=== PATIENT | male | born 1960 | race Caucasian/White ===

== ENCOUNTER → 2019-09-17 15:39 | Outpatient (ROUT) | payer OTHER, SELFPAY ==
[2019-09-17 15:51] LABS: Add Manual Diff / Slide Review NO; Basophils Absolute Auto 100 /uL (0-100); Basophils Percent Auto 0.7 % (0-2); Eosinophils Absolute Auto 200 /uL (0-450); Eosinophils Percent Auto 1.7 % (2-4); Hematocrit 55.9 % (41-53); Hemoglobin 19.2 g/dL (13.5-17.5); Lymphocytes Absolute Auto 2000 /uL (1100-4500); Lymphocytes Percent Auto 21.1 % (25-40); Mean Corpuscular HGB Conc 34.3 % (30-36); Mean Corpuscular Hemoglobin 31.5 PG (26-34); Mean Corpuscular Volume 91.8 fL (80-100); Monocytes Absolute Auto 700 /uL (0-900); Monocytes Percent Auto 7.8 % (3-14); Neutrophils Absolute Auto 6300 /uL (1500-7000); Neutrophils Percent Auto 68.7 % (50-75); Platelet Count 320 X10^3/uL (150-400); Red Blood Cell Count 6.09 X10^6/uL (4.5-5.9); Red Cell Distribution Width 14.6 % (11.6-14.8); White Blood Cell Count 9.2 X10^3/uL (4.5-11.0)
[2019-09-17 15:53] LABS: Alanine Aminotransferase 60 IU/L (21-72); Albumin 4.6 g/dL (3.5-5.0); Albumin Globulin Ratio 1.6 (1.0-2.8); Alkaline Phosphatase 85 U/L (38-126); Aspartate Aminotransferase 40 IU/L (17-59); BUN Creatinine Ratio 23.8 (6-22); Bilirubin Total 0.6 mg/dL (0.2-1.3); Blood Urea Nitrogen 19 mg/dL (9-20); Calcium 10.9 mg/dL (8.4-10.2); Carbon Dioxide 26 mmol/L (22-32); Chloride 103 mmol/L (98-107); Cholesterol 313 mg/dL (140-199); Estimated Glomerular Filt Rate > 60.0 mL/min (>60); Globulin 2.9 g/dL (1.7-4.1); Glucose 121 mg/dL (80-110); HDL Cholesterol 49 mg/dL (40-60); HEMOLYSIS < 15 (0-50); Potassium 4.7 mmol/L (3.4-5.1); Sodium 140 mmol/L (137-145); Total Protein 7.5 g/dL (6.3-8.2)
[2019-09-17 16:01] LABS: Triglycerides 636 mg/dL (35-150)
[2019-09-17 16:24] LABS: Prostate Specific Antigen 0.733 ng/mL (0.10-4.00)
[2019-09-17 16:26] LABS: TSH w/ Reflex to FT4 3.51 uIU/mL (0.47-4.68)
== END ==
PROVIDERS: PCP Family Medicine; Visit Provider Internal Medicine
DX: Z00.00 Encounter for general adult medical examination without abnormal findings (principal); R53.83 Other fatigue; E78.2 Mixed hyperlipidemia; E29.1 Testicular hypofunction; E83.52 Hypercalcemia
CPT/HCPCS: 80053; 80061; 84153; 84403; 84443; 85025

== ENCOUNTER 2019-12-31 10:02 | Day surgery (SDC) | payer OTHER, SELFPAY ==
[2019-12-31] MEDS: SODIUM CHLORIDE 0.9% 1,000 ML 84 ML IV (10:23)
[2019-12-31 10:32] VITALS: BMI 34.4
--- NOTE | 2019-12-31 11:57 | PM.HP.1 ---
History of Present Illness History of Present Illness Chief complaint: [id number] COLONOSCOPY Patient History Family & Social History Social History: household members spouse Tobacco & Substance use: Tobacco type cigarettes Smoking Status Current every day smoker Smoking packs per day 1 alcohol intake frequency holiday/special occasion Substance Use Type marijuana Meds Home Medications and Allergies Allergies Allergy/AdvReac Type Severity Reaction Status Date / Time No Known Drug Allergies Allergy Verified 12/31/19 10:38 Review of Systems Review of Systems ROS: Yes All systems reviewed with the patient and are negative except as otherwise documented Exam Narrative Exam Narrative: Awake alert oriented x3, no acute distress, lungs clear to auscultation bilaterally, heart regular rate and rhythm, no lower extremity edema Assessment & Plan Assessment & Plan narrative: History of colon polyps for colonoscopy today
[2019-12-31] MEDS: MIDAZOLAM 5 MG/5 ML VIAL IV ×2 (12:20→12:30)
[2019-12-31] MEDS: fentaNYL 250 MCG/5 ML INJ IV (12:20)
--- NOTE | 2019-12-31 12:32 | PM.OP.ENDO ---
Operative Date/Time/Diagnoses Date of procedure: 12/31/19 Procedure & Clinicians Study performed: Aborted colonoscopy Moderate conscious sedation was administered by the endoscopy nurse and supervised by the endoscopist. The following parameters were monitored: Oxygen saturation, heart rate, blood pressure, and response to care. Sedation total: 8 mg midazolam, 200 mcg fentanyl Indications: Colon cancer screening, personal history of colon polyps, last colonoscopy 2006 Procedure Notes Procedure in detail: Prior to the procedure, history and physical was performed, and patient medications and allergies were reviewed. Preprocedure nursing history and assessment was reviewed. Patient identification and proposed procedure were verified by the physician and nurse in the procedure room. The physical status of the patient was reassessed after the procedure. After informed consent was obtained including risks, benefits, and alternatives, the scope was passed under direct vision. Throughout the procedure, the patient's blood pressure, pulse, and oxygen saturations were monitored continuously. The colonoscope was introduced through the anus and advanced to the descending colon. The patient tolerated the procedure poorly and the scope could not be advanced further due to excessive patient discomfort and agitation. Bowel prep was deemed adequate to detect polyps greater than 5 mm. Perianal and digital rectal examinations were unremarkable. Retroflexion in the rectum revealed grade 1 internal hemorrhoids. Sigmoid colon diverticulosis was noted. Colonoscope advanced to the descending colon, procedure aborted. Impression: Aborted colonoscopy due to excessive patient discomfort and agitation No specimen obtained Sedation minutes: 12 Specimen(s): none sent Complications: none Post-procedure Plan for aftercare: Reschedule colonoscopy with monitored anesthesia care Resume home medications Resume previous diet Discharge home with escort
[2019-12-31 12:35] VITALS: BP 134/92; PULSE 77; RESP 16; TEMP 36.2; O2SAT 94
[2019-12-31 12:40] VITALS: BP 171/128; PULSE 81; RESP 86; O2SAT 17
[2019-12-31 12:45] VITALS: BP 139/92; PULSE 70; RESP 18; O2SAT 97
[2019-12-31 12:55] VITALS: BP 129/82; PULSE 83; RESP 16; O2SAT 97
[2019-12-31 13:11] VITALS: BP 133/92; PULSE 73; RESP 21; O2SAT 91
[2019-12-31 13:25] VITALS: BP 122/89; PULSE 82; RESP 20; TEMP 37; O2SAT 96
== END 2019-12-31 13:34 | disposition home or self-care (01) ==
PROVIDERS: PCP Internal Medicine; Referring Provider Internal Medicine; Visit Provider Internal Medicine
PROC: 0DJD8ZZ Inspection of Lower Intestinal Tract, Via Natural or Artificial Opening Endoscopic (ICD-10-PCS; CPT 45378; principal; 2019-12-31 11:30)
DX: Z12.11 Encounter for screening for malignant neoplasm of colon (principal); Z86.010 Personal history of colon polyps; K64.0 First degree hemorrhoids; K57.30 Diverticulosis of large intestine without perforation or abscess without bleeding; Z53.09 Procedure and treatment not carried out because of other contraindication
CPT/HCPCS: 45378; J2250; J3010

== ENCOUNTER → 2020-06-07 08:35 | Outpatient (CLI) | payer OTHER, SELFPAY ==
[2020-06-07 09:23] LABS: Add Manual Diff / Slide Review NO; Basophils Absolute Auto 100 /uL (0-100); Basophils Percent Auto 0.9 % (0-2); Eosinophils Absolute Auto 200 /uL (0-450); Eosinophils Percent Auto 2.8 % (2-4); Hematocrit 41.3 % (41-53); Hemoglobin 14.5 g/dL (13.5-17.5); Lymphocytes Absolute Auto 2500 /uL (1100-4500); Lymphocytes Percent Auto 35.7 % (25-40); Mean Corpuscular HGB Conc 35.2 % (30-36); Mean Corpuscular Hemoglobin 32.9 PG (26-34); Mean Corpuscular Volume 93.5 fL (80-100); Monocytes Absolute Auto 800 /uL (0-900); Monocytes Percent Auto 11.9 % (3-14); Neutrophils Absolute Auto 3400 /uL (1500-7000); Neutrophils Percent Auto 48.7 % (50-75); Platelet Count 318 X10^3/uL (150-400); Red Blood Cell Count 4.41 X10^6/uL (4.5-5.9); Red Cell Distribution Width 12.8 % (11.6-14.8)
[2020-06-07 10:07] LABS: Calcium 9.4 mg/dL (8.4-10.2)
[2020-06-08 07:40] LABS: Parathyroid Hormone Int 25 pg/mL (15-65)
== END ==
PROVIDERS: PCP Internal Medicine; Referring Provider Internal Medicine; Visit Provider Internal Medicine
DX: D75.1 Secondary polycythemia (principal); E83.52 Hypercalcemia
CPT/HCPCS: 36415; 82310; 83970; 85025

== ENCOUNTER → 2020-07-19 12:39 | Outpatient (CLI) | payer OTHER, SELFPAY ==
--- NOTE | 2020-07-19 | DI.MRI.S_ITS ---
PROCEDURE: MR HAND LT WO/W CON INDICATIONS: Osteomyelitis, unspecified TECHNIQUE: Noncontrast coronal T1 spin echo and fat suppressed T2, sagittal T1 spin echo and STIR, axial PD spin, T1 spin echo with fat saturation, and T2 fast spin echo with fat saturation. After the administration of contrast, axial/sagittal/coronal T1 spin echo with fat saturation through the fingers. COMPARISON: None. FINDINGS: Image quality: Excellent. A skin marker is seen at the dorsal aspect of the 3rd finger overlying the distal interphalangeal joint. Bones: There is osseous edema within the 3rd distal and middle phalanges adjacent to the distal interphalangeal joint, which is suspicious for osteomyelitis in the setting of presumed infection. Bone marrow signal is otherwise intact throughout the remainder of the hand. Mild degenerative changes are seen at the 1st metacarpophalangeal joint. Nonspecific osteophyte formation is seen at the radial aspect of the 2nd and 3rd metacarpal heads. Soft tissues: Soft tissue edema is seen in the distal portion of the 3rd finger that is more prominent dorsally. No discrete fluid collection is seen. No soft tissue masses are visualized. The scanned muscles demonstrate normal overall bulk and internal signal. IMPRESSION: Subcutaneous edema is seen in the distal aspect of the 3rd finger overlying the distal interphalangeal joint. There is edema and enhancement of the adjacent portions of the middle and distal phalanges that is suspicious for osteomyelitis in the setting of presumed infection. No focal fluid collection or abscess is seen. Dictated by: Joey Kc M.D. on 07/19/2020 at 14:37 Approved by: Joey Kc M.D. on 07/19/2020 at 14:48
== END ==
PROVIDERS: PCP Internal Medicine; Referring Provider Internal Medicine; Visit Provider Internal Medicine
DX: M86.9 Osteomyelitis, unspecified (principal)
CPT/HCPCS: 73220

== ENCOUNTER → 2020-09-07 10:29 | Outpatient (CLI) | payer OTHER, SELFPAY ==
[2020-09-07 11:12] LABS: Alanine Aminotransferase 27 IU/L (<50); Albumin 4.4 g/dL (3.5-5.0); Albumin Globulin Ratio 1.5 (1.0-2.8); Alkaline Phosphatase 85 U/L (38-126); Aspartate Aminotransferase 32 IU/L (17-59); BUN Creatinine Ratio 27.8 (6-22); Bilirubin Total 0.4 mg/dL (0.2-1.3); Blood Urea Nitrogen 25 mg/dL (9-20); Calcium 9.2 mg/dL (8.4-10.2); Carbon Dioxide 33 mmol/L (22-32); Chloride 103 mmol/L (98-107); Creatine Kinase 252 U/L (55-170); Estimated Glomerular Filt Rate > 60.0 mL/min (>60); Globulin 2.9 g/dL (1.7-4.1); Glucose 122 mg/dL (80-110); HEMOLYSIS 16 (0-50); Potassium 4.4 mmol/L (3.4-5.1); Sodium 139 mmol/L (137-145); Total Protein 7.3 g/dL (6.3-8.2)
== END ==
PROVIDERS: PCP Internal Medicine; Referring Provider Internal Medicine Infectious Disease; Visit Provider Internal Medicine Infectious Disease
DX: M86.9 Osteomyelitis, unspecified (principal); R74.8 Abnormal levels of other serum enzymes
CPT/HCPCS: 36415; 80053; 82550

== ENCOUNTER → 2021-03-14 09:43 | Outpatient (CLI) | payer OTHER, SELFPAY ==
[2021-03-14 10:36] LABS: Add Manual Diff / Slide Review NO; Basophils Absolute Auto 0 /uL (0-100); Basophils Percent Auto 0.6 % (0-2); Eosinophils Absolute Auto 200 /uL (0-450); Eosinophils Percent Auto 2.5 % (2-4); Hematocrit 45.4 % (41-53); Hemoglobin 15.9 g/dL (13.5-17.5); Lymphocytes Absolute Auto 1800 /uL (1100-4500); Lymphocytes Percent Auto 27.1 % (25-40); Mean Corpuscular Hemoglobin 32.5 PG (26-34); Mean Corpuscular Volume 92.9 fL (80-100); Monocytes Absolute Auto 700 /uL (0-900); Monocytes Percent Auto 9.7 % (3-14); Neutrophils Absolute Auto 4100 /uL (1500-7000); Neutrophils Percent Auto 60.1 % (50-75); Platelet Count 233 X10^3/uL (150-400); Red Blood Cell Count 4.89 X10^6/uL (4.5-5.9); Red Cell Distribution Width 12.9 % (11.6-14.8); White Blood Cell Count 6.8 X10^3/uL (4.5-11.0)
[2021-03-14 11:09] LABS: Alanine Aminotransferase 39 IU/L (<50); Albumin 4.3 g/dL (3.5-5.0); Albumin Globulin Ratio 1.8 (1.0-2.8); Alkaline Phosphatase 86 U/L (38-126); Aspartate Aminotransferase 35 IU/L (17-59); BUN Creatinine Ratio 26.3 (6-22); Bilirubin Total 0.5 mg/dL (0.2-1.3); Blood Urea Nitrogen 21 mg/dL (9-20); Calcium 9.4 mg/dL (8.4-10.2); Carbon Dioxide 30 mmol/L (22-32); Chloride 100 mmol/L (98-107); Cholesterol 227 mg/dL (140-199); Estimated Glomerular Filt Rate > 60.0 mL/min (>60); Globulin 2.4 g/dL (1.7-4.1); Glucose 125 mg/dL (80-110); HDL Cholesterol 42 mg/dL (40-60); HEMOLYSIS < 15 (0-50); Potassium 4.6 mmol/L (3.4-5.1); Sodium 137 mmol/L (137-145); Total Protein 6.7 g/dL (6.3-8.2)
[2021-03-14 11:18] LABS: Triglycerides 698 mg/dL (35-150)
[2021-03-14 11:32] LABS: Prostate Specific Antigen 0.456 ng/mL (0.10-4.00)
[2021-03-14 11:34] LABS: Testosterone 45.1 ng/dL (71.8-623)
== END ==
PROVIDERS: PCP Internal Medicine; Referring Provider Internal Medicine; Visit Provider Internal Medicine
DX: E78.2 Mixed hyperlipidemia (principal); E29.1 Testicular hypofunction
CPT/HCPCS: 36415; 80053; 80061; 84153; 84403; 85025

== ENCOUNTER → 2021-06-20 13:16 | Outpatient (CLI) | payer OTHER, SELFPAY ==
[2021-06-20 15:37] LABS: COVID19 -Nasal RAPID Negative (Negative)
== END ==
PROVIDERS: PCP Internal Medicine; Visit Provider Physician Assistant
DX: Z01.812 Encounter for preprocedural laboratory examination (principal); Z20.822 Contact with and (suspected) exposure to COVID-19
CPT/HCPCS: 87635

== ENCOUNTER 2021-06-22 13:24 | Day surgery (SDC) | payer OTHER, SELFPAY ==
[2021-06-22] MEDS: SODIUM CHLORIDE 0.9% 1,000 ML 84 ML IV (14:33)
[2021-06-22 14:34] VITALS: BP 147/87; PULSE 73; RESP 16; TEMP 35.9; O2SAT 97; BMI 33.7
--- NOTE | 2021-06-22 15:35 | PM.HP.1 ---
History of Present Illness History of Present Illness Date Patient Seen: 06/22/21 Chief complaint: DX COLONOSCOPY Narrative: History of colon polyps Patient History Medical History (Updated 06/22/21 @ 14:29 by Flavio Pringle RN) Broken ankle Chronic low back pain Depression Diverticulitis History of adenomatous polyp of colon Hyperlipidemia Hypogonadism Surgical History (Updated 06/22/21 @ 14:29 by Flavio Pringle RN) History of vasectomy Family & Social History Social History: household members spouse Tobacco & Substance use: Tobacco type cigarettes Smoking Status Current every day smoker Smoking packs per day 1 alcohol intake frequency holiday/special occasion Substance Use Type marijuana Meds Home Medications and Allergies Home Medications Medication Instructions Recorded Confirmed Type escitalopram oxalate 20 mg tablet 10 mg PO DAILY 06/22/21 06/22/21 History esomeprazole magnesium 20 mg 20 mg PO DAILY 06/22/21 06/22/21 History capsule,delayed release (Nexium) yzaxxhsv-xvp-fzily acid 300 1 tab PO DAILY 06/22/21 06/22/21 History mcg-lycopene 600 mcg-lutein 300 mcg tablet (Centrum Silver Men) rosuvastatin 10 mg tablet 10 mg PO DAILY 06/22/21 06/22/21 History Allergies Allergy/AdvReac Type Severity Reaction Status Date / Time No Known Drug Allergies Allergy Verified 12/31/19 10:38 Exam Vital Signs (past 8 hours): - 06/22/21 14:34 Temperature 96.7 F L Pulse Rate 73 Respiratory Rate 16 Blood Pressure 147/87 H Pulse Oximetry 97 Oxygen Delivery Method Room Air Oxygen Flow Rate 0 Narrative Exam Narrative: Oropharynx free of lesions Chest clear to auscultation percussion Cardiac exam reveals no S3 or murmur Assessment & Plan Assessment & Plan narrative: History of colon polyps need for follow-up colonoscopy. Difficult to sedate so anesthesia will be involved
--- NOTE | 2021-06-22 15:37 | PM.OP.ENDO ---
Operative Date/Time/Diagnoses Date of procedure: 06/22/21 Pre-op diagnosis: See indication and findings Procedure & Clinicians Study performed: Colonoscopy Indications: History of colon polyps Surgeon: Melody Patel Procedure Notes Procedure in detail: After informed consent was obtained the patient was placed in left lateral decubitus position. The video colonoscope was introduced the rectum slowly advanced to the cecum. On slow withdrawal mucosa was carefully examined. The scope was removed. The patient tolerated procedure well. Blood loss none Complications none Sedation MAC Findings 1. Extensive sigmoid diverticulosis with some narrowing of the lumen and Collin diverticular erythema 2. Otherwise negative colonoscopy to cecum Patient should have follow-up colonoscopy in 5 years a
[2021-06-22 15:40] VITALS: BP 118/79; PULSE 65; RESP 16; TEMP 36.4; O2SAT 94
[2021-06-22 15:45] VITALS: BP 118/79; PULSE 65; RESP 16; O2SAT 96
== END 2021-06-22 16:16 | disposition home or self-care (01) ==
LOC: ENDO 13:25
PROVIDERS: PCP Internal Medicine; Referring Provider Internal Medicine Gastroenterology; Visit Provider Internal Medicine Gastroenterology
PROC: 0DJD8ZZ Inspection of Lower Intestinal Tract, Via Natural or Artificial Opening Endoscopic (ICD-10-PCS; CPT 45378; principal; 2021-06-22 14:30)
DX: Z12.11 Encounter for screening for malignant neoplasm of colon (principal); Z86.010 Personal history of colon polyps; E66.9 Obesity, unspecified; K21.9 Gastro-esophageal reflux disease without esophagitis; K57.30 Diverticulosis of large intestine without perforation or abscess without bleeding
CPT/HCPCS: 45378; J2704

== ENCOUNTER → 2023-02-24 08:43 | Outpatient (CLI) | payer MEDICARE, SELFPAY ==
[2023-02-24 09:19] LABS: Hematocrit 48.4 % (41-53); Hemoglobin 16.8 g/dL (13.5-17.5); Mean Corpuscular HGB Conc 34.8 % (30-36); Mean Corpuscular Hemoglobin 32.2 PG (26-34); Mean Corpuscular Volume 92.5 fL (80-100); Platelet Count 286 X10^3/uL (150-400); Red Blood Cell Count 5.23 X10^6/uL (4.5-5.9); Red Cell Distribution Width 12.8 % (11.6-14.8); White Blood Cell Count 8.8 X10^3/uL (4.5-11.0)
[2023-02-24 10:31] LABS: Alanine Aminotransferase 68 IU/L (<50); Albumin 4.4 g/dL (3.5-5.0); Albumin Globulin Ratio 1.4 (1.0-2.8); Alkaline Phosphatase 80 U/L (38-126); Aspartate Aminotransferase 45 IU/L (17-59); BUN Creatinine Ratio 18.1 (6-22); Bilirubin Total 0.8 mg/dL (0.2-1.3); Blood Urea Nitrogen 17 mg/dL (9-20); Calcium 9.6 mg/dL (8.4-10.2); Carbon Dioxide 26 mmol/L (22-32); Chloride 102 mmol/L (98-107); Estimated Glomerular Filt Rate > 60 mL/min (>60); Globulin 3.1 g/dL (1.7-4.1); Glucose 158 mg/dL (80-110); HDL Cholesterol 46 mg/dL (40-60); HEMOLYSIS < 15 (0-50); Potassium 4.5 mmol/L (3.4-5.1); Sodium 136 mmol/L (137-145); Total Protein 7.5 g/dL (6.3-8.2)
[2023-02-24 10:45] LABS: Cholesterol 359 mg/dL (140-199); Triglycerides 875 mg/dL (35-150)
[2023-02-24 10:53] LABS: TSH w/ Reflex to FT4 3.19 uIU/mL (0.47-4.68)
[2023-02-24 10:56] LABS: Prostate Specific Antigen 0.792 ng/mL (0.10-4.00)
[2023-02-24 10:58] LABS: Testosterone 167 ng/dL (71.8-623)
== END ==
PROVIDERS: PCP Internal Medicine; Referring Provider Internal Medicine; Visit Provider Internal Medicine
DX: E78.2 Mixed hyperlipidemia (principal); N40.0 Benign prostatic hyperplasia without lower urinary tract symptoms; R79.89 Other specified abnormal findings of blood chemistry
CPT/HCPCS: 36415; 80053; 80061; 84153; 84403; 84443; 85027

== ENCOUNTER → 2023-10-12 07:39 | Outpatient (CLI) | payer MEDICARE, SELFPAY ==
[2023-10-12 08:29] LABS: Hemoglobin A1C% w Est Avg Glu 6.7 % (4.0-6.0)
[2023-10-12 08:42] LABS: Hematocrit 45.8 % (41-53); Mean Corpuscular Hemoglobin 32.5 PG (26-34); Mean Corpuscular Volume 92.9 fL (80-100); Platelet Count 309 X10^3/uL (150-400); Red Blood Cell Count 4.93 X10^6/uL (4.5-5.9); Red Cell Distribution Width 13.1 % (11.6-14.8); White Blood Cell Count 8.1 X10^3/uL (4.5-11.0)
[2023-10-12 08:43] LABS: Alanine Aminotransferase 40 IU/L (<50); Albumin 4.5 g/dL (3.5-5.0); Albumin Globulin Ratio 1.6 (1.0-2.8); Alkaline Phosphatase 60 U/L (38-126); Aspartate Aminotransferase 40 IU/L (17-59); BUN Creatinine Ratio 25.4 (6-22); Bilirubin Total 0.9 mg/dL (0.2-1.3); Blood Urea Nitrogen 18 mg/dL (9-20); Calcium 9.6 mg/dL (8.4-10.2); Carbon Dioxide 24 mmol/L (22-32); Chloride 103 mmol/L (98-107); Cholesterol 188 mg/dL (140-199); Estimated Glomerular Filt Rate > 60 mL/min (>60); Globulin 2.9 g/dL (1.7-4.1); Glucose 125 mg/dL (80-110); HDL Cholesterol 42 mg/dL (40-60); HEMOLYSIS 22 (0-50); LDL Cholesterol Calculated 92 mg/dL (<100); Potassium 4.2 mmol/L (3.4-5.1); Sodium 134 mmol/L (137-145); Total Protein 7.4 g/dL (6.3-8.2); Triglycerides 269 mg/dL (35-150)
[2023-10-12 08:46] LABS: NT-proBNP (BNP-Adult 18+) 370 pg/mL (<125)
== END ==
PROVIDERS: PCP Internal Medicine; Referring Provider Internal Medicine; Visit Provider Internal Medicine
DX: I50.9 Heart failure, unspecified (principal); R03.0 Elevated blood-pressure reading, without diagnosis of hypertension; R73.01 Impaired fasting glucose; E78.2 Mixed hyperlipidemia
CPT/HCPCS: 36415; 80053; 80061; 83036; 83880; 85027

== ENCOUNTER 2023-10-20 19:52 | Emergency (ER) | payer MEDICARE, SELFPAY ==
[2023-10-20 19:54] VITALS: BP 215/106; PULSE 75; RESP 14; TEMP 36.4; O2SAT 99; BMI 30.8
[2023-10-20 19:56] VITALS: PULSE 76; O2SAT 99
[2023-10-20 19:57] VITALS: BP 215/106; PULSE 76; O2SAT 99
[2023-10-20 20:00] VITALS: BP 224/108; PULSE 76; O2SAT 98
--- NOTE | 2023-10-20 20:17 | ED.GIBLEED ---
HPI - GI Bleed General Chief complaint: GI Bleed Stated complaint: BLOODY STOOL Time Seen by Provider: 10/20/23 20:01 Source: patient Mode of arrival: Ambulatory History of Present Illness HPI Narrative: 63-year-old male here for evaluation of bright red blood per rectum. He denies any abdominal pain. No pain with bowel movements. He has had a significant alcohol history but has been sober for greater than 3 months now. He is not on anticoagulation. Had a colonoscopy within the past year. Was told to return in 5 years. He has been told that he is had internal hemorrhoids. Related Data Home Medications Medication Instructions Recorded Confirmed saw palmetto 1 cap PO DAILY 10/15/23 10/20/23 One A Day Vitamin 1 tab DAILY 10/20/23 10/20/23 Previous Rx's Medication Instructions Recorded escitalopram oxalate 20 mg tablet 10 mg (1/2 x 20 mg) PO DAILY #45 02/27/23 tabs rosuvastatin 10 mg tablet 10 mg PO DAILY #90 tabs 06/05/23 sildenafil 50 mg tablet (Viagra) 50 mg PO DAILY PRN sexual activity 10/16/23 #30 tabs Allergies Allergy/AdvReac Type Severity Reaction Status Date / Time No Known Drug Allergies Allergy Verified 10/20/23 20:02 Review of Systems Constitutional Constitutional: Reports system reviewed and no additional complaints, except as documented Gastrointestinal Gastrointestinal: Reports system reviewed and no additional complaints, except as documented Genitourinary Genitourinary: Reports system reviewed and no additional complaints, except as documented Integumentary/Breasts Skin/Breast: Reports system reviewed and no additional complaints, except as documented Hematologic/Lymphatic On Anticoagulants: No Patient History Medical History Substance use disorder Alcohol use disorder Impaired fasting glucose Generalized anxiety disorder Elevated blood pressure reading without diagnosis of hypertension Tobacco use disorder Right rotator cuff tear Obesity (BMI 30.0-34.9) History of colonic polyps Depression, major, recurrent GERD without esophagitis Mixed hyperlipidemia Sleep apnea (~2019) Fractures (~2019) Chronic back pain Hearing loss Hemorrhoid Low testosterone History of adenomatous polyp of colon Chronic low back pain Hypogonadism Depression (~2009) Hyperlipidemia Diverticulitis Surgical History Anesthesia History of appendectomy (~1985) History of colonoscopy Broken ankle (~2019) History of vasectomy Social History details: , one son and daughter, retired household members: spouse Smoking Status: Current every day smoker Smoking Status: Current every day smoker alcohol intake frequency: other Substance Use Type: does not use and marijuana Exam Initial Vital Signs Initial Vital Signs: Vital Signs Temperature 97.6 F 10/20/23 19:54 Pulse Rate 75 10/20/23 19:54 Respiratory Rate 14 10/20/23 19:54 Blood Pressure 215/106 H 10/20/23 19:54 Pulse Oximetry 99 10/20/23 19:54 Oxygen Delivery Method Room Air 10/20/23 19:54 HENMT Head: normal to inspection and normocephalic GI Inspection: normal to inspection and non-distended Other: No external hemorrhoids. One internal hemorrhoid is felt. He is Hemoccult positive Skin General: no rashes or lesions noted Neuro General: patient alert, patient awake and moves all extremities Course Orders Ordered: ED Orders 10/20/23 20:25 Basic Metabolic Panel Stat Complete Blood Count AUTO DIFF Stat Vital Signs Vital signs: Vital Signs - 8 hr 10/20/23 19:54 10/20/23 19:56 10/20/23 19:57 Temperature 97.6 F Pulse Rate 75 76 Respiratory Rate 14 Blood Pressure 215/106 H 215/106 H Pulse Oximetry 99 99 Oxygen Delivery Method Room Air 10/20/23 19:57 10/20/23 20:00 10/20/23 20:00 Temperature Pulse Rate 76 76 Respiratory Rate Blood Pressure 224/108 H Pulse Oximetry 99 98 Oxygen Delivery Method 10/20/23 22:15 Temperature Pulse Rate 88 Respiratory Rate 18 Blood Pressure 196/98 H Pulse Oximetry 98 Oxygen Delivery Method Room Air MDM - GI Bleed Lab Data Attestation: I reviewed the patient's lab results. 10/20/23 20:25 10/20/23 20:25 Labs: Lab Results 10/20/23 Range/Units 20:25 WBC 8.7 (4.5-11.0) X10^3/uL RBC 4.58 (4.5-5.9) X10^6/uL Hgb 14.7 (13.5-17.5) g/dL Hct 42.2 (41-53) % MCV 92.1 (80-100) fL MCH 32.1 (26-34) PG MCHC 34.9 (30-36) % RDW 13.2 (11.6-14.8) % Plt Count 288 (150-400) X10^3/uL Neut % (Auto) 55.4 (50-75) % Lymph % (Auto) 33.2 (25-40) % [place] % (Auto) 8.8 (3-14) % Eos % (Auto) 1.8 L (2-4) % Baso % (Auto) 0.8 (0-2) % Neut # (Auto) 4800 (8707-8483) /uL Lymph # (Auto) 2900 (1545-8223) /uL [place] # (Auto) 800 (0-900) /uL Eos # (Auto) 200 (0-450) /uL Baso # (Auto) 100 (0-100) /uL Sodium 134 L (137-145) mmol/L Potassium 4.6 (3.4-5.1) mmol/L Chloride 101 (98-107) mmol/L Carbon Dioxide 24 (22-32) mmol/L BUN 22 H (9-20) mg/dL Creatinine 0.83 (0.66-1.25) mg/dL Estimated GFR > 60 (>60) mL/min BUN/Creatinine Ratio 26.5 H (6-22) Glucose 133 H (80-110) mg/dL Calcium 9.5 (8.4-10.2) mg/dL MDM Narrative Medical decision making narrative: Patient is having bright red blood per rectum. He does have an internal hemorrhoid in his felt on exam. He is not hypotensive. Not tachycardic. Not anemic. No indication for admission to the hospital. Will discharge patient home with instructions for follow-up with general surgery to discuss further evaluation if needed. He was given return precautions. He expressed understanding and agreement. Discharge Plan Departure Patient Disposition: Home Clinical Impression: Rectal bleeding Instructions: Gastrointestinal Bleeding Activity Restrictions/Additional Instructions: I recommend that you contact your primary doctor and also the general surgery department at the number provided below to discuss follow-up. You can also contact the individual who did your colonoscopy earlier in the year for follow-up as well. Return to the emergency department for new or worsening symptoms. Prescriptions: No Action escitalopram oxalate 20 mg tablet 10 mg PO DAILY Qty: 45 3RF rosuvastatin 10 mg tablet 10 mg PO DAILY Qty: 90 3RF sildenafil [Viagra] 50 mg tablet 50 mg PO DAILY PRN (Reason: sexual activity) Qty: 30 3RF Rx Instructions: administer 30 minutes to 4 hours before activity saw palmetto 1 cap PO DAILY One A Day Vitamin 1 tab DAILY Referrals: Sterling Faustin MD [Primary Care Provider] - Niranjan Moore MD [Physician] - Stand Alone Forms: Patient Portal/API
[2023-10-20 20:43] LABS: Add Manual Diff / Slide Review NO; Basophils Absolute Auto 100 /uL (0-100); Basophils Percent Auto 0.8 % (0-2); Eosinophils Absolute Auto 200 /uL (0-450); Eosinophils Percent Auto 1.8 % (2-4); Hematocrit 42.2 % (41-53); Hemoglobin 14.7 g/dL (13.5-17.5); Lymphocytes Absolute Auto 2900 /uL (1100-4500); Lymphocytes Percent Auto 33.2 % (25-40); Mean Corpuscular HGB Conc 34.9 % (30-36); Mean Corpuscular Hemoglobin 32.1 PG (26-34); Mean Corpuscular Volume 92.1 fL (80-100); Monocytes Absolute Auto 800 /uL (0-900); Monocytes Percent Auto 8.8 % (3-14); Neutrophils Absolute Auto 4800 /uL (1500-7000); Neutrophils Percent Auto 55.4 % (50-75); Platelet Count 288 X10^3/uL (150-400); Red Blood Cell Count 4.58 X10^6/uL (4.5-5.9); Red Cell Distribution Width 13.2 % (11.6-14.8); White Blood Cell Count 8.7 X10^3/uL (4.5-11.0)
[2023-10-20 20:53] LABS: BUN Creatinine Ratio 26.5 (6-22); Blood Urea Nitrogen 22 mg/dL (9-20); Calcium 9.5 mg/dL (8.4-10.2); Carbon Dioxide 24 mmol/L (22-32); Chloride 101 mmol/L (98-107); Estimated Glomerular Filt Rate > 60 mL/min (>60); Glucose 133 mg/dL (80-110); HEMOLYSIS 46 (0-50); Potassium 4.6 mmol/L (3.4-5.1); Sodium 134 mmol/L (137-145)
[2023-10-20 22:15] VITALS: BP 196/98; PULSE 88; RESP 18; O2SAT 98
== END 2023-10-20 22:18 | disposition home or self-care (01) ==
PROVIDERS: Emergency Provider Emergency Medicine; PCP Internal Medicine
DX: K62.5 Hemorrhage of anus and rectum (principal)
CPT/HCPCS: 36415; 80048; 85025; 99283

== ENCOUNTER → 2023-10-24 17:02 | Outpatient (CLI) | payer MEDICARE, SELFPAY ==
[2023-10-24 17:33] LABS: Hematocrit 43.2 % (41-53); Hemoglobin 15.1 g/dL (13.5-17.5); Mean Corpuscular Volume 91.4 fL (80-100); Platelet Count 306 X10^3/uL (150-400); Red Blood Cell Count 4.73 X10^6/uL (4.5-5.9); Red Cell Distribution Width 13.2 % (11.6-14.8); White Blood Cell Count 9.5 X10^3/uL (4.5-11.0)
[2023-10-24 17:44] LABS: Hemoglobin A1C% w Est Avg Glu 6.6 % (4.0-6.0)
[2023-10-24 18:03] LABS: Alanine Aminotransferase 36 IU/L (<50); Albumin 4.5 g/dL (3.5-5.0); Albumin Globulin Ratio 1.6 (1.0-2.8); Alkaline Phosphatase 57 U/L (38-126); Aspartate Aminotransferase 31 IU/L (17-59); Bilirubin Total 0.5 mg/dL (0.2-1.3); Blood Urea Nitrogen 21 mg/dL (9-20); Calcium 9.4 mg/dL (8.4-10.2); Carbon Dioxide 24 mmol/L (22-32); Chloride 103 mmol/L (98-107); Cholesterol 210 mg/dL (140-199); Estimated Glomerular Filt Rate > 60 mL/min (>60); Globulin 2.9 g/dL (1.7-4.1); Glucose 118 mg/dL (80-110); HDL Cholesterol 44 mg/dL (40-60); HEMOLYSIS 23 (0-50); Potassium 4.4 mmol/L (3.4-5.1); Sodium 135 mmol/L (137-145); Total Protein 7.4 g/dL (6.3-8.2)
[2023-10-24 18:12] LABS: Triglycerides 588 mg/dL (35-150)
== END ==
PROVIDERS: PCP Internal Medicine; Referring Provider Internal Medicine; Visit Provider Internal Medicine
DX: K62.5 Hemorrhage of anus and rectum (principal); R73.01 Impaired fasting glucose; E78.2 Mixed hyperlipidemia
CPT/HCPCS: 36415; 80053; 80061; 83036; 85027

== ENCOUNTER 2023-11-26 16:19 | Emergency (ER) | payer MEDICARE, SELFPAY ==
[2023-11-26 16:33] VITALS: BP 187/94; PULSE 80; RESP 16; TEMP 36.6; O2SAT 97; BMI 30.7
[2023-11-26 18:09] VITALS: BP 187/95; PULSE 73; RESP 22; TEMP 36.7
--- NOTE | 2023-11-26 18:29 | PC.NURSE ---
PT reports attempting to establish an appointment with his dentist. Pt was seen at dentist and states he needed a root canal and to call an oral surgeon. Pt made multiple attempts to reach local oral surgeons and has not heard back. Worsening pain unrelieved by tylenol. Pt has been taking max dose of tylenol per bottle.
[2023-11-26] MEDS: OXYCODONE/ACETAMINOPHEN 5/325 TABLET 2 TAB PO (18:55)
[2023-11-26] MEDS: AMOXICILLIN/CLAV 875/125 MG 1 TAB PO (18:57)
--- NOTE | 2023-11-26 19:01 | ED_ITS ---
HPI - Dental/Oral <Alden Deutsch PA-C - Last Filed: 11/26/23 19:07> General Chief complaint: Dental/Oral Stated complaint: Infected tooth/mouth pain Time Seen by Provider: 11/26/23 18:06 History of Present Illness HPI Narrative: 63-year-old male presents to the ED with 3 days of dental pain. Patient was seen 4 days ago by his dentist for a broken filling, was recommended a root canal procedure to be scheduled by a root canal expert. Patient was not started on antibiotics at that time. Patient states that the next day the tooth started hurting significantly and has steadily worsened since then. Patient has taken ibuprofen without any relief. Patient denies fever, chills, nausea, vomiting. Related Data Home Medications Medication Instructions Recorded Confirmed saw palmetto 1 cap PO DAILY 10/15/23 10/24/23 One A Day Vitamin 1 tab DAILY 10/20/23 10/24/23 lidocaine 5 % topical patch 1 patch topical DAILY low back pain 10/24/23 10/24/23 Previous Rx's Medication Instructions Recorded escitalopram oxalate 20 mg tablet 10 mg (1/2 x 20 mg) PO DAILY #45 02/27/23 tabs rosuvastatin 10 mg tablet 10 mg PO DAILY #90 tabs 06/05/23 sildenafil 50 mg tablet (Viagra) 50 mg PO DAILY PRN sexual activity 10/16/23 #30 tabs amoxicillin 875 mg-potassium 1 tab PO Q12H 14 days #28 tabs 11/26/23 clavulanate 125 mg tablet oxycodone-acetaminophen 5 mg-325 1 tab PO Q8H PRN pain 3 days #9 11/26/23 mg tablet (Percocet) tabs Allergies Allergy/AdvReac Type Severity Reaction Status Date / Time No Known Drug Allergies Allergy Verified 10/24/23 12:33 Review of Systems <Alden Deutsch PA-C - Last Filed: 11/26/23 19:07> Constitutional Constitutional: Denies chills, Denies fatigue, Denies fever(s), Denies frequent falls, Denies lethargy and Denies weakness Eyes Eyes: Denies change in vision, Denies eye discharge, Denies irritation and Denies loss of vision ENT Ears, Nose, Mouth, and Throat: Denies change in voice, Reports dental pain, Denies dizziness, Denies neck pain, Denies sore throat and Denies throat swelling Cardiovascular Cardiovascular: Denies chest pain, Denies irregular heart rhythm, Denies lightheadedness, Denies palpitations, Denies dyspnea, Denies dyspnea on exertion and Denies orthopnea Respiratory Respiratory: Denies cough, Denies dyspnea, Denies dyspnea on exertion and Denies wheezing Gastrointestinal Gastrointestinal: Denies abdominal pain, Denies change in bowel habits, Denies diarrhea, Denies nausea and Denies vomiting Musculoskeletal Musculoskeletal: Denies neck pain and Denies numbness Integumentary/Breasts Skin/Breast: Denies pruritus, Denies erythema, Denies rash and Denies wounds Neurologic Neurologic: Denies behavioral changes, Denies confusion, Denies dizziness, Denies frequent falls, Denies loss of vision, Denies numbness and Denies weakness Psychiatric Psychiatric: Denies anxiety, Denies behavioral changes, Denies confusion, Denies depression, Denies homicidal ideation and Denies suicidal ideation Endocrine Endocrine: Denies fatigue, Denies flushing and Denies palpitations Hematologic/Lymphatic Hematologic/Lymphatic: Denies easy bruising Allergic/Immunologic Allergic/Immunologic: Denies urticaria, Denies throat swelling and Denies wheezing Patient History <Alden Deutsch PA-C - Last Filed: 11/26/23 19:07> Medical History Substance use disorder Alcohol use disorder Impaired fasting glucose Generalized anxiety disorder Elevated blood pressure reading without diagnosis of hypertension Tobacco use disorder Right rotator cuff tear Obesity (BMI 30.0-34.9) History of colonic polyps Depression, major, recurrent GERD without esophagitis Mixed hyperlipidemia Sleep apnea (~2019) Fractures (~2019) Chronic back pain Hearing loss Hemorrhoid Low testosterone History of adenomatous polyp of colon Chronic low back pain Hypogonadism Depression (~2009) Hyperlipidemia Diverticulitis Surgical History Anesthesia History of appendectomy (~1985) History of colonoscopy Broken ankle (~2019) History of vasectomy Social History details: , one son and daughter, retired household members: spouse Smoking Status: Current every day smoker Smoking Status: Current every day smoker alcohol intake frequency: other Substance Use Type: does not use and marijuana Exam <Alden Deutsch PA-C - Last Filed: 11/26/23 19:07> Narrative Exam Narrative: Const General:?cooperative, healthy appearing and comfortable [facility] Head:?normal to inspection Ears:?hearing grossly normal bilaterally Nose:?external nose normal Face and sinus:?normal facial exam and sinuses nontender Mouth:? There is an area of induration and fluctuance above the tooth where patient complains of pain. Most consistent with a periapical abscess. Throat:?posterior oropharynx normal; airway is patent. Eyes General:?appearance normal, both eyes and all related structures Neck Neck:?normal visual inspection and no lymphadenopathy noted Resp Effort & Inspection:?normal respiratory effort Auscultation:?clear to auscultation bilaterally Cardio Rate:?regular rate Rhythm:?regular rhythm Neuro General:?patient alert, patient awake and patient oriented x3 Initial Vital Signs Initial Vital Signs: Vital Signs Temperature 97.8 F 11/26/23 16:33 Pulse Rate 80 11/26/23 16:33 Respiratory Rate 16 11/26/23 16:33 Blood Pressure 187/94 H 11/26/23 16:33 Pulse Oximetry 97 11/26/23 16:33 Oxygen Delivery Method Room Air 11/26/23 16:33 <Maribel Senior DO - Last Filed: 11/27/23 13:32> Initial Vital Signs Initial Vital Signs: Vital Signs Temperature 97.8 F 11/26/23 16:33 Pulse Rate 80 11/26/23 16:33 Respiratory Rate 16 11/26/23 16:33 Blood Pressure 187/94 H 11/26/23 16:33 Pulse Oximetry 97 11/26/23 16:33 Oxygen Delivery Method Room Air 11/26/23 16:33 Course <Alden Deutsch PA-C - Last Filed: 11/26/23 19:07> Orders Ordered: Discontinued Medications Amoxicillin/Clavulanate Potassium (Amoxicillin/Clav 875/125 Mg) 1 tab PO NOW ONE Stop: 11/26/23 18:36 Last Admin: 11/26/23 18:57 Dose: 1 tab Documented By: JERAMIE Oxycodone/Acetaminophen (Oxycodone/Acetaminophen 5/325 Tablet) 2 tab PO NOW ONE Stop: 11/26/23 18:34 Last Admin: 11/26/23 18:55 Dose: 2 tab Documented By: JERAMIE Vital Signs Vital signs: Vital Signs - 8 hr 11/26/23 16:33 11/26/23 18:09 Temperature 97.8 F 98.1 F Pulse Rate 80 73 Respiratory Rate 16 22 Blood Pressure 187/94 H 187/95 H Pulse Oximetry 97 Oxygen Delivery Method Room Air Room Air <Maribel Senior DO - Last Filed: 11/27/23 13:32> Orders Ordered: Discontinued Medications Amoxicillin/Clavulanate Potassium (Amoxicillin/Clav 875/125 Mg) 1 tab PO NOW ONE Stop: 11/26/23 18:36 Last Admin: 11/26/23 18:57 Dose: 1 tab Documented By: JERAMIE Oxycodone/Acetaminophen (Oxycodone/Acetaminophen 5/325 Tablet) 2 tab PO NOW ONE Stop: 11/26/23 18:34 Last Admin: 11/26/23 18:55 Dose: 2 tab Documented By: JERAMIE Vital Signs Vital signs: Vital Signs - 8 hr 11/26/23 16:33 11/26/23 18:09 Temperature 97.8 F 98.1 F Pulse Rate 80 73 Respiratory Rate 16 22 Blood Pressure 187/94 H 187/95 H Pulse Oximetry 97 Oxygen Delivery Method Room Air Room Air MDM - Dental/Oral <Alden Deutsch PA-C - Last Filed: 11/26/23 19:07> MDM Narrative Medical decision making narrative: 63-year-old male presents to the ED with 3 days of dental pain. Physical exam is most consistent with a periapical abscess of the top front tooth. Prescribed antibiotics and pain medication. Recommend patient see his dentist as soon as possible for further evaluation and treatment. ED return precautions were discussed with patient. Patient verbalized understanding. Medical records reviewed: Yes Discharge Plan Departure Patient Disposition: Home Clinical Impression: Abscess, dental Instructions: Tooth Abscess Activity Restrictions/Additional Instructions: You were evaluated in the ED today for dental pain. It appears that you have a dental abscess/infection. You are being prescribed pain medication and antibiotics. Please take those as prescribed. Please follow-up with your dentist as soon as possible for further evaluation. Return to the ED if you have worsening symptoms, fever, chills, persistent vomiting. Prescriptions: New oxycodone-acetaminophen [Percocet] 5-325 mg tablet 1 tab PO Q8H PRN (Reason: pain) 3 Days Qty: 9 0RF amoxicillin-pot clavulanate 875-125 mg tablet 1 tab PO Q12H 14 Days Qty: 28 0RF No Action escitalopram oxalate 20 mg tablet 10 mg PO DAILY Qty: 45 3RF rosuvastatin 10 mg tablet 10 mg PO DAILY Qty: 90 3RF sildenafil [Viagra] 50 mg tablet 50 mg PO DAILY PRN (Reason: sexual activity) Qty: 30 3RF Rx Instructions: administer 30 minutes to 4 hours before activity saw palmetto 1 cap PO DAILY lidocaine 5 % adhesive patch,medicated 1 patch topical DAILY One A Day Vitamin 1 tab DAILY Referrals: Sterling Faustin MD [Primary Care Provider] - Stand Alone Forms: Patient Portal/API ED Sign-out <Maribel Senior DO - Last Filed: 11/27/23 13:32> Cosign ED Attending Cosignature Attestation: I was available for consultation.
--- NOTE | 2023-11-26 19:04 | PC.NURSE ---
Pt making the 5minute trip home and was instructed to take first dose of pain medication at home. Pt expressed understanding. Pt given 2x pain medications to take at home due to pharmacies being closed today. Pt educated on not using pain medications while driving, etc.
== END 2023-11-26 19:05 | disposition home or self-care (01) ==
PROVIDERS: Emergency Provider Student in an Organized Health Care Education/Training Program; PCP Internal Medicine
DX: K04.7 Periapical abscess without sinus (principal)
CPT/HCPCS: 99283

== ENCOUNTER → 2024-04-14 07:21 | Outpatient (CLI) | payer MEDICARE, SELFPAY ==
[2024-04-14 08:48] LABS: Hemoglobin A1C% w Est Avg Glu 7.1 % (4.0-6.0)
[2024-04-14 12:33] LABS: BUN Creatinine Ratio 22.7 (6-22); Blood Urea Nitrogen 17 mg/dL (9-20); Calcium 9.1 mg/dL (8.4-10.2); Carbon Dioxide 24 mmol/L (22-32); Chloride 101 mmol/L (98-107); Cholesterol 207 mg/dL (140-199); Estimated Glomerular Filt Rate > 60 mL/min (>60); Glucose 158 mg/dL (80-110); HDL Cholesterol 40 mg/dL (40-60); HEMOLYSIS 28 (0-50); Potassium 4.5 mmol/L (3.4-5.1); Sodium 136 mmol/L (137-145); Triglycerides 448 mg/dL (35-150)
== END ==
PROVIDERS: PCP Internal Medicine; Referring Provider Internal Medicine; Visit Provider Internal Medicine
DX: R73.01 Impaired fasting glucose (principal); E78.2 Mixed hyperlipidemia
CPT/HCPCS: 36415; 80048; 80061; 83036

== ENCOUNTER → 2024-06-06 16:32 | Outpatient (CLI) | payer MEDICARE, SELFPAY ==
--- NOTE | 2024-06-06 | DI.MRI.S_ITS ---
PROCEDURE: MR SHOULDER RT WO CON INDICATIONS: SHOULDER PAIN TECHNIQUE: Noncontrast oblique coronal T2 fast spin echo with fat saturation, oblique sagittal T1 spin echo and T2 fast spin echo with fat saturation, axial T1 spin echo and T2 fast spin echo with fat saturation through the shoulder. COMPARISON: [facility] [place], CR, XR SHOULDER 2+ VIEWS RIGHT, 06/04/2024, 13:21. FINDINGS: Image quality: Excellent. Rotator cuff: Complete tearing of the supraspinatus tendon and the infraspinatus tendon from their distal insertions with proximal tendon retraction measuring up to 6 cm. There is grade 4 fatty infiltration of the infraspinatus muscle and grade 3 fatty infiltration of the supraspinatus muscle with mild loss of muscle bulk. Mild superimposed edema may indicate muscle strains. Teres minor tendon Estrace mild tendinosis. There is moderate subscapularis tendinosis and partial intrasubstance tearing at the superior insertion. Mild edema within the medial subscapularis muscle without significant atrophy. Bones and bursae: No acute trabecular bone injury or fracture. Lken-ti-wehrxjmn partial-thickness cartilage irregularity in the glenohumeral joint with subchondral cystic changes and marginal osteophytes. Moderate acromioclavicular joint osteoarthrosis with subchondral cystic changes and marginal osteophytes. There is a large amount of fluid in the subacromial/subdeltoid bursa that communicates with the glenohumeral joint space. Fluid is also seen in the subcoracoid bursa. There is prominent synovial hypertrophy. Capsule and soft tissues: Diffuse degenerative labral tearing. Proximal biceps long head tendon demonstrates moderate tendinosis. There is effacement of the rotator interval fat. Glenohumeral ligaments appear to be intact. IMPRESSION: 1. Complete tearing of the supraspinatus and infraspinatus tendons from their distal insertions with proximal tendon retraction beyond the glenoid rim measuring up to 6 cm. Moderate to severe fatty infiltration of the supraspinatus and infraspinatus muscles with mild loss of bulk. 2. Moderate subscapularis tendinosis and low-grade partial intrasubstance tearing at the superior insertion. 3. Mild edema within the medial rotator cuff musculature is suspicious for superimposed low-grade strains. 4. Moderate proximal biceps long head tendinosis. 5. Diffuse labral degeneration and chronic degenerative tearing. Grade 2-3 chondromalacia in the glenohumeral joint. 6. Moderate acromioclavicular joint osteoarthrosis. 7. Large subacromial/subdeltoid and subcoracoid bursal effusions with prominent synovial hypertrophy. Glenohumeral joint communicates with the subacromial/subdeltoid bursa. Approved by: Joey Kc M.D. on 06/09/2024 at 11:44
== END ==
LOC: MRI 16:33
PROVIDERS: PCP Internal Medicine; Referring Provider Orthopaedic Surgery; Visit Provider Orthopaedic Surgery
DX: M75.121 Complete rotator cuff tear or rupture of right shoulder, not specified as traumatic (principal); S43.491A Other sprain of right shoulder joint, initial encounter; M94.211 Chondromalacia, right shoulder; M25.511 Pain in right shoulder; M25.411 Effusion, right shoulder
CPT/HCPCS: 73221

== ENCOUNTER → 2024-06-10 13:56 | Outpatient (CLI) | payer MEDICARE, SELFPAY ==
--- NOTE | 2024-06-10 14:04 | DIAB.MNT ---
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 Use to eating a lot of pork and beef. Quit drinking ETOH last year. H/o substance abuse. Wants to learn how to eat a healthy diet. Daughter is an RN in another state. Trying to quit smoking again. H/o quitting and gained wt. Needs to stop smoking again before shoulder sx. Stress management hx with ETOH. Diet Recall: 7a: ww thin toast and cheese + frozen breakfast 12p: sandwich on thin bread and 1 large handful chips OR hamburger no fries 7p: meat, veggies, potatoes x 1 potato or rice x 1c OR Salad 5 x 16.9oz, sugar free gatorade x 40oz Anthropometrics: Ht: 5'11 Wt: 239# 03/2024 Weight history: 210# Jun 2023 after becoming sober. Quit smoking Oct 2023-- started wt gain. Physical Activity: Walks dogs 5 days per week for 20-25 mins. Self-Monitoring Blood Glucose: None. No supplies. Diabetes Medications: None Pertinent Labs: HgA1c: 6.7% 09/2023 7.1% 03/2024 Past Medical History: (Last Updated 04/15/24 @ 11:29 by Sterling Faustin MD) Alcohol use disorder Chronic back pain Chronic low back pain Depression (~2009) Depression, major, recurrent Diverticulitis DM type 2 with diabetic dyslipidemia Elevated blood pressure reading without diagnosis of hypertension Fractures (~2019) Generalized anxiety disorder GERD without esophagitis Hearing loss Hemorrhoid History of adenomatous polyp of colon History of colonic polyps Hyperlipidemia Hypogonadism Low testosterone Mixed hyperlipidemia Obesity (BMI 30.0-34.9) Right rotator cuff tear Sleep apnea (~2019) Substance use disorder Tobacco use disorder Nutrition Rx: Carbohydrates: Meal:45g Snack:15-30g Nutrition Diagnosis: - Food and nutrition related knowledge deficit r/t new dx T2Dm aeb patient report and hgA1c >6.5% - Self monitoring deficit r/t no SMBG supplies aeb pt report Intervention: This participant was very receptive. Provided appropriate educational handouts. Discussed the following topics: Completed intake assessment. Discussed barriers to care. Pathophysiology of T2DM HgA1c, its correlation to blood glucose numbers, and rationale for goal Importance of self-monitoring, how often, and when to check. Suggested checking at different times to evaluate meals Plate Method, impact of macronutrients on blood sugar, meal timing, carbohydrate counting, pairing macronutrients and spreading out carbohydrates for better blood glucose management Recommended servings for carbohydrates at meals and snacks Heart health nutrition Brainstormed appropriate meal plan based on food preferences Role of physical activity and following provider guidelines for safety Created SMART goals for patient self-care and success. 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
== END ==
PROVIDERS: PCP Internal Medicine; Referring Provider Internal Medicine
DX: E11.9 Type 2 diabetes mellitus without complications (principal); Z71.3 Dietary counseling and surveillance
CPT/HCPCS: 97802

== ENCOUNTER → 2024-06-11 08:11 | Outpatient (CLI) | payer MEDICARE, SELFPAY ==
--- NOTE | 2024-06-11 08:14 | EKG_ITS ---
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
[2024-06-11 09:45] LABS: Appearance Urine UA CLEAR; Bilirubin Urine UA NEGATIVE (NEGATIVE); Color Urine UA YELLOW; Glucose Urine UA NEGATIVE (Negative); Ketones Urine UA NEGATIVE (NEGATIVE); Leukocyte Esterase Urine UA NEGATIVE (NEGATIVE); Nitrite Urine UA NEGATIVE (Negative); Occult Blood Urine UA NEGATIVE (Negative); Protein Urine UA NEGATIVE (Negative); Specific Gravity Urine UA 1.025 (1.000-1.035); Urobilinogen Urine UA 0.2 E.U./dL (0.2); pH Urine UA 5.5 (4.5-8.0)
[2024-06-11 09:48] LABS: Add Manual Diff / Slide Review NO; Basophils Absolute Auto 100 /uL (0-100); Basophils Percent Auto 0.7 % (0-2); Eosinophils Absolute Auto 200 /uL (0-450); Eosinophils Percent Auto 2.3 % (2-4); Hematocrit 44.2 % (41-53); Hemoglobin 15.6 g/dL (13.5-17.5); Lymphocytes Absolute Auto 3000 /uL (1100-4500); Lymphocytes Percent Auto 28.8 % (25-40); Mean Corpuscular HGB Conc 35.2 % (30-36); Mean Corpuscular Hemoglobin 32.9 PG (26-34); Mean Corpuscular Volume 93.3 fL (80-100); Monocytes Absolute Auto 1000 /uL (0-900); Monocytes Percent Auto 9.9 % (3-14); Neutrophils Absolute Auto 6000 /uL (1500-7000); Neutrophils Percent Auto 58.3 % (50-75); Platelet Count 345 X10^3/uL (150-400); Red Blood Cell Count 4.74 X10^6/uL (4.5-5.9); Red Cell Distribution Width 12.8 % (11.6-14.8); White Blood Cell Count 10.2 X10^3/uL (4.5-11.0)
[2024-06-11 09:52] LABS: Bacteria Urine None Seen; Culture Indicated Urine Cult Not Indicated; RBC Urine None Seen (0-5/HPF); Squamous Epithelial Cell Urine 0-1 /HPF (0-5/HPF); Urine Volume 10mL (spun); WBC Urine 0-1/HPF (0-5/HPF)
[2024-06-11 10:04] LABS: BUN Creatinine Ratio 26.9 (6-22); Blood Urea Nitrogen 21 mg/dL (9-20); Calcium 10.2 mg/dL (8.4-10.2); Carbon Dioxide 26 mmol/L (22-32); Chloride 102 mmol/L (98-107); Estimated Glomerular Filt Rate > 60 mL/min (>60); Glucose 146 mg/dL (80-110); HEMOLYSIS < 15 (0-50); Potassium 4.8 mmol/L (3.4-5.1); Sodium 137 mmol/L (137-145)
== END ==
PROVIDERS: PCP Internal Medicine; Referring Provider Orthopaedic Surgery; Visit Provider Orthopaedic Surgery
DX: Z01.818 Encounter for other preprocedural examination (principal); Z01.812 Encounter for preprocedural laboratory examination; N39.0 Urinary tract infection, site not specified
CPT/HCPCS: 80048; 81001; 85025; 93005; 93010

== ENCOUNTER → 2024-06-13 13:17 | Outpatient (CLI) | payer MEDICARE, SELFPAY ==
--- NOTE | 2024-06-13 | DI.CT.S_ITS ---
PROCEDURE: CT SHOULDER RIGHT WITHOUT CON INDICATIONS: Other specific arthropathies, not elsewhere classified, righ TECHNIQUE: Noncontrast 0.75 mm thick sections acquired from the acromioclavicular joint to the inferior scapula, with oblique coronal and oblique sagittal reformatting. For radiation dose reduction, the following was used: automated exposure control, adjustment of mA and/or kV according to patient size. COMPARISON: [facility] [place], CR, XR SHOULDER 2+ VIEWS RIGHT, 06/04/2024, 13:21. Merged With [facility], MR, MR SHOULDER RT WO CON, 06/06/2024, 16:43. FINDINGS: Image quality: Excellent. Image quality: Excellent. Bones: No acute osseous fracture or dislocation. Moderate is seen at the glenohumeral joint with small marginal osteophytes. There is no significant glenoid retroversion or anteversion relative to the midplane of the scapula at the mid glenoid level. Nuao-aj-vakxrywh acromioclavicular osteoarthrosis. Mild degenerative changes are seen in the included spine. Included ribs are intact. Soft tissues: Moderate glenohumeral effusion communicates with the subacromial/subdeltoid bursa. No calcified intra-articular loose body is seen. There is moderate atrophy and grade 2-3 fatty infiltration of the supraspinatus and infraspinatus muscles. The tendons, ligaments, articular cartilages, and labrum are better evaluated on the prior MRI from 06/06/2024. Included lung demonstrates mild centrilobular and paraseptal emphysema. IMPRESSION: 1. Moderate glenohumeral and acromioclavicular osteoarthrosis. 2. Moderate glenohumeral effusion. 3. Atrophy of the supraspinatus and infraspinatus muscles is compatible with underlying chronic full-thickness rotator cuff tendon tear is as seen on MRI from 06/06/2024. Approved by: Joey Kc M.D. on 06/13/2024 at 21:56
== END ==
PROVIDERS: PCP Internal Medicine; Referring Provider Orthopaedic Surgery; Visit Provider Orthopaedic Surgery
DX: M19.011 Primary osteoarthritis, right shoulder (principal); M25.411 Effusion, right shoulder; M62.511 Muscle wasting and atrophy, not elsewhere classified, right shoulder
CPT/HCPCS: 73200

== ENCOUNTER 2024-06-26 08:24 | Day surgery (SDC) | payer MEDICARE, SELFPAY ==
[2024-06-24 12:27] VITALS: BMI 33.0
--- NOTE | 2024-06-26 | DI.RAD.S_ITS ---
PROCEDURE: XR SHOULDER RT 1V INDICATIONS: POST OP TOTAL SHLDR TECHNIQUE: Single view of the shoulder were acquired. COMPARISON: [facility], CT, CT SHOULDER RIGHT WITHOUT CON, 06/13/2024, 13:20. FINDINGS: Status post right shoulder arthroplasty in expected alignment. Expected postsurgical edema and emphysema. IMPRESSION: Status post right shoulder arthroplasty in expected alignment. Dictated by: Liam Richards M.D. on 06/26/2024 at 16:47 Approved by: Liam Richards M.D. on 06/26/2024 at 16:49
[2024-06-26 08:56] VITALS: BP 135/91; PULSE 75; RESP 16; TEMP 36.7; O2SAT 95; BMI 33.7
[2024-06-26] MEDS: LACTATED RINGERS 1,000 ML 42 ML IV (09:09)
--- NOTE | 2024-06-26 10:08 | PM.PREOP ---
Pre-operative Note Interval Note History & Physical reviewed/Exam performed by Physician: Yes Changes to H&P: No
--- NOTE | 2024-06-26 10:26 | SUR.PREOP ---
Block start time [1015] . Monitoring initiated and maintained throughout procedure. Oxygen and medications given per anesthesiologist instructions. Patient remained stable throughout procedure, no adverse reactions noted. Block end time [1023].
[2024-06-26] MEDS: CEFAZOLIN 2 GM/100 ML PREMIX 100 ML IV (10:57)
[2024-06-26] MEDS: TRANEXAMIC ACID 1,000 MG VIAL 1000 MG INJ (11:04)
--- NOTE | 2024-06-26 11:19 | SUR.OPER ---
Beach chair with Jaleel/Ruthie shoulder positioner. Lower body on padded OR bed. Head in foam padded head cradle, secured with straps. Non-operative arm secured <90 degrees abduction. Pillow under knees. Safety belt at thigh. Cloth tape over blanket over lower legs.
[2024-06-26] MEDS: ACETAMINOPHEN IV 1,000 MG/100 ML VIAL 400 MG IV (11:34)
[2024-06-26] MEDS: BUPIVACAINE 0.25% (PF) 30 ML, EPINEPHrine 0.15 MG INJ (11:34)
--- NOTE | 2024-06-26 12:24 | PM.OP.1 ---
Operative Date/Time/Diagnoses Date of procedure: 06/26/24 Time of procedure: 12:24 Pre-op diagnosis: Cuff tear arthropathy right Post-op diagnosis: same Procedure & Clinicians Procedure: Right reverse total shoulder arthroplasty Same procedure as scheduled: Yes Indications: Indications: This is a 64-year-old male who has rotator cuff arthropathy. Symptoms have been present for years, insidious onset. Patient has failed a reasonable attempt at conservative therapy. After extensive discussion in clinic, they wished to go forward with surgery. Risks and benefits were described including the risk of infection, bleeding, damage to internal structures including nerves. We also discussed the risk of failure of surgery and the need for revision surgery as well as the risk of anesthesia. The patient expressed understanding with these risks and wished to go forward with surgery. Surgeon: Slim Denton Resident Athletic Trainer: Rose Marie He Anesthesia Type: General Operative Notes Findings: Findings: Osteoarthritis of the glenoid and humeral head as well as a defient rotator cuff as noted on preoperative imaging and under direct visualization Closure Type: primary Specimen(s): none sent Prosthetic devices, grafts, tissues, transplants, or devices: Tornier implants Base plate: standard 25 mm, +3 mm offset Glenosphere: 39 mm Stem: Perform 3 Poly: +3 concentric Estimated Blood Loss (mL): 100 Blood products transfused: none Procedure in detail: Patient was seen in the preoperative holding unit. The correct right shoulder was identified and marked with my initials. Again we discussed the risks and benefits of surgery and they wished to go forward with surgery. The patient was brought back to the operating room and placed supine on the operating table. Smooth endotracheal intubation was performed by anesthesia. All prominences were padded and they were placed into the beach chair position. Intravenous antibiotics were given. The right shoulder was then prepped with the standard sterile preparation and draping. A time-out was then performed in my initials were again identified on the correct shoulder. 1 g of IV tranexamic acid was given. A standard deltopectoral incision was made. Skin flaps were made. The cephalic vein was identified and retracted laterally. This was protected throughout the remainder of the case. Sharp dissection was made along the deltoid, subacromial and subcoracoid space to release adhesions. The conjoined tendon was identified and the axillary nerve was palpated and continuous using the tug test. It was protected throughout the remainder of the case. A brown retractor was placed underneath the deltoid muscle and a darach retractor underneath the conjoint tendon. The subscapularis muscle was ntoed to be intact. The anterior circumflex artery and associated veins on the lower border of the subscapularis were identified and tied off using 0-Vicryl. The biceps tendon was identified in the bicipital groove. This was released from its sheath, and taken from its origin on the glenoid and tied into the pectoralis tendon for a solid tenodesis. We then began a subscapularis peel. The subscapularis was tagged with an Ethibond suture. A 360 degree circumferential release of the subscapularis was performed with protection of the axillary nerve. The coracohumeral ligament was released at the base of the coracoid. The shoulder was then dislocated. Osteophytes were removed using combination of rongeur and osteotome. The rotator cuff was noted to be insufficient. An intramedullary guide was used set at version of 20?. Using an oscillating saw a conservative humeral head cut was made. Impaction reamers were reamed up to a size 3 stem with a built-in angle 135?. A neck protector was placed. Attention was then turned to the glenoid. After retracting the humeral head posteriorly a circumferential release was performed of the capsule with protection of the axillary nerve. The labrum was then released starting at the biceps anchor and going around the rim a small amount of triceps was released from the inferior glenoid. A center guide pin was then placed using the guide, followed by Reamer. After adequate cartilage was removed the boss was reamed and the centeral hole was drilled and measured. The base plate was then implanted and screwed into place. The peripheral screws were then sequentially drilled, measured, and placed. A 39 glenosphere was then selected and screwed into place onto the base plate. Turning back to the humerus, the humeral head was delivered and trialed with a +3 concentric. The arm was taken through range of motion and this was felt to be stable. The trial was then removed and a dilute Betadine wash was then performed with 1 L of sterile saline. Before placing the final implant, drill holes were made in the bicipital groove for the subscapularis repair, and sutures were passed through the drill holes. The final stem was then impacted into the humerus. The shoulder was then reduced and again brought through range of motion and was felt to be stable. The subscapularis was then repaired using a modified racking hitch with nice loupes. The deltopectoral interval was then closed with #2 Ethibond. The skin was closed with 2-0 vicryl and 3-0 Monocryl followed by Aquacel dressing. Patient was awoken from anesthesia and brought back to the postoperative recovery unit without issue. They were placed into a sling. Assisting participation: This operation could not have been safely performed (without compromising the technical results or length of the procedure) without the assistance of a skilled assistant basketball coach. The assistant basketball coach was medically necessary for proper positioning, retraction and manipulation of instruments, proper exposure, graft prep, and manipulation of tissue. Complications: none Post-operative Condition: stable Disposition: PACU Plan for aftercare: Postoperative instructions: Sling to remain on for 6 weeks. No external rotation past neutral for 6 weeks. Okay for the sling to come off for shower. Okay to shower over the Aquacel dressing. If any water gets underneath the dressing, remove the dressing. First postoperative visit in 2 weeks.
[2024-06-26 12:53] VITALS: BP 163/97; PULSE 70; RESP 16; TEMP 36.6; O2SAT 93
[2024-06-26 13:13] VITALS: BP 143/95; PULSE 78; RESP 12; TEMP 36.3; O2SAT 92
[2024-06-26 13:18] VITALS: BP 136/87; PULSE 76; RESP 16; O2SAT 92
== END 2024-06-26 13:46 | disposition home or self-care (01) ==
PROVIDERS: PCP Internal Medicine; Referring Provider Orthopaedic Surgery; Visit Provider Orthopaedic Surgery
PROC: (CPT 23472; principal; 2024-06-26 10:15)
DX: M12.811 Other specific arthropathies, not elsewhere classified, right shoulder (principal); G89.18 Other acute postprocedural pain; M25.711 Osteophyte, right shoulder
CPT/HCPCS: 23472; 64450; 73020; C1776; J0136; J0171; J0330; J0690; J1170; J2250; J2405; J2704; J3010

== ENCOUNTER → 2024-07-02 08:57 | Outpatient (CLI) | payer MEDICARE, SELFPAY ==
--- NOTE | 2024-07-02 09:04 | DIAB.MNTFU ---
Addendum entered by Kat Nixon 07/02/24 09:54: Time: 093-782n Original Note: Follow-up Diabetes Medical Nutrition Therapy Assessment Name: Shreyas Granger (Jacky) Date: 07/02/24 Time: 905- Dx: Type II Diabetes Jacky presents for follow-up visit. Recent shoulder surgery. Got a meter but was unable to access supplies due to missing directions in rx per report. Brought photos from some meals. Carb portions look moderate to low. Questions about soup nutrition and portions. Also questions regarding macaroni portions. Chicken once per week. Fish q couple weeks. Considering replacing pork with fish in his diet. Last labs indicated elevated total cholesterol. No LDL available due to elevated TG. Cut out candy. Trying to use sf cookies. Diet Recall: 7a: ww thin toast and cheese + frozen breakfast 12p: sandwich on thin bread and salad or fruit (half banana) OR lean beef, green beans, 1c rice or less sn: nothing or cheese stick 7p: meatloaf, green beans, coleslaw water 5 x 16.9oz, + sugar free gatorade Anthropometrics: Ht: 5'11 Wt: 239# 03/2024 Weight history: 210# Jun 2023 after becoming sober. Quit smoking Oct 2023-- started wt gain. Physical Activity: Last visit reported walks dogs 5 days per week for 20-25 mins. Plans to go back to walks after recovery. Self-Monitoring Blood Glucose: None. Picked up meter, no strips or extra lancets. Diabetes Medications: None Pertinent Labs: HgA1c: 6.7% 09/2023 7.1% 03/2024 Past Medical History: (Last Updated 04/15/24 @ 11:29 by Sterling Faustin MD) Alcohol use disorder Chronic back pain Chronic low back pain Depression (~2009) Depression, major, recurrent Diverticulitis DM type 2 with diabetic dyslipidemia Elevated blood pressure reading without diagnosis of hypertension Fractures (~2019) Generalized anxiety disorder GERD without esophagitis Hearing loss Hemorrhoid History of adenomatous polyp of colon History of colonic polyps Hyperlipidemia Hypogonadism Low testosterone Mixed hyperlipidemia Obesity (BMI 30.0-34.9) Right rotator cuff tear Sleep apnea (~2019) Substance use disorder Tobacco use disorder Nutrition Rx: Carbohydrates: Meal:45g Snack:15-30g Nutrition Diagnosis: - Food and nutrition related knowledge deficit r/t new dx T2Dm aeb patient report and hgA1c >6.5%- improved - Self monitoring deficit r/t no SMBG supplies aeb pt report- in progress Intervention: This participant was very receptive. Provided appropriate educational handouts. Discussed the following topics: Heart healthy diet and reducing saturated fats, increasing fiber and omegas how to check BG, disposal of sharps, how to replace lancet Carb portions and recs for types of carbs RD messaged provider workgroup to update rx for meter supplies Created SMART goals for patient self-care and success. Goals: Try 45g CHO at meals- met Add afternoon snack- 50% met Pair carbs and protein for meals/snacks- met printing supervisor meter/supplies for SMBG- met/in progress Add veggies to lunch and cut out chips - met Try fish 1-2 times per week - new printing supervisor new meter supplies- new Follow-up: ANN MARIE HUITRON follow-up in 4 weeks for group Dm classes in July Kat Nixon RDN, ELANA Certified Diabetes Care and [employer] P: [phone] Thank you for this referral
== END ==
PROVIDERS: PCP Internal Medicine; Referring Provider Internal Medicine
DX: E11.9 Type 2 diabetes mellitus without complications (principal); Z71.3 Dietary counseling and surveillance
CPT/HCPCS: 97803

== ENCOUNTER → 2024-07-29 09:29 | Outpatient (CLI) | payer MEDICARE, SELFPAY ==
--- NOTE | 2024-08-01 15:00 | DIAB.FU ---
Diabetes Education Class Series: Diabetes and Nutrition Name: Shreyas Granger (Jacky) Date: 07/29/24 Time: [id number] Jacky presents for 1 of 3 DSME classes. Though had to leave early today for PT and reports he will be out of town for the rest of the class series. States he has been working on diet changes, continued sobriety, and exercise. Class topics covered: Debunk nutrition myths and discuss how to sustain healthy eating long-term through moderation and variety Define macronutrients and determine their impact on blood sugars Discuss macronutrient pairing, Plate Method Follow-up: Recommend classes and 1:1 after returning from trip. Kat Nixon RDN, [facility] Certified Diabetes Care and Central Scheduler P: [phone] Thank you for this referral
== END ==
PROVIDERS: PCP Internal Medicine; Referring Provider Internal Medicine
DX: E11.9 Type 2 diabetes mellitus without complications (principal); Z71.3 Dietary counseling and surveillance
CPT/HCPCS: G0109

== ENCOUNTER 2024-12-16 09:50 | Emergency (ER) | payer MEDICARE, SELFPAY ==
[2024-12-16 09:52] VITALS: BP 209/109; PULSE 83; RESP 14; TEMP 36.8; O2SAT 99; BMI 32.3
[2024-12-16 10:03] VITALS: O2SAT 98
[2024-12-16 10:04] VITALS: BP 209/109
--- NOTE | 2024-12-16 10:06 | DI.RAD.S_ITS ---
PROCEDURE: XR SHOULDER RT MIN 2V INDICATIONS: Pain/injury TECHNIQUE: 3 views of the shoulder were acquired. COMPARISON: [facility] [place], CR, XR SHOULDER 2+ VIEWS RIGHT, 07/10/2024, 10:59. , CR, XR SHOULDER RT 1V, 06/26/2024, 12:52. FINDINGS: Bones: Postsurgical changes from right shoulder arthroplasty. Possible lucency around the humeral component. No fractures or dislocations. No suspicious bony lesions. Visualized ribs appear intact. Soft tissues: No suspicious soft tissue calcifications. IMPRESSION: Postsurgical changes from right shoulder arthroplasty. Possible lucency surrounding the humeral component, correlate with signs of loosening or infection. Dictated by: Jose Ryan M.D. on 12/16/2024 at 10:51 Approved by: Jose Ryan M.D. on 12/16/2024 at 10:54
--- NOTE | 2024-12-16 10:19 | ED_ITS ---
HPI - Extremity Problem General Chief complaint: Extremity Problem,Nontraumatic Stated complaint: Shoulder keeps popping out after 2nd surgery Time Seen by Provider: 12/16/24 09:58 Source: patient Mode of arrival: Ambulatory History of Present Illness HPI Narrative: Patient here for right shoulder pain/possible dislocation. Patient just got back from [place] about a week ago. Patient states last summer he had total right shoulder replacement by orthopedist here, Dr Hernandez, and had to have 2nd opinion down in [place] and had the ball joint replaced. He was informed that the original ball joint was too small, it was replaced with a larger 1, he went from medium to large, with the same manufacture. He stayed down the for rehab and did very well. The surgery in [place] was in August. He just got back a week ago, he states since then he has had 3 episodes where the joint has popped out he states he is able to place it back in himself. This occurred this morning, it popped out but he was able to pop it back in. He is wearing a shoulder harness brace that was provided to him last summer when he had the surgery here. Blood pressure noted. He states his blood pressure is always high. Related Data Home Medications Medication Instructions Recorded Confirmed multivitamin 1 tab PO DAILY 10/20/23 06/26/24 lidocaine 5 % topical patch 1 patch topical DAILY PRN low back 10/24/23 06/26/24 pain oxycodone 5 mg tablet 5 mg PO Q4H PRN Pain 06/24/24 06/26/24 Previous Rx's Medication Instructions Recorded sildenafil 50 mg tablet (Viagra) 50 mg PO DAILY PRN sexual activity 10/16/23 #30 tabs hydrocodone 5 mg-acetaminophen 325 1 tab PO Q6H PRN pain #20 tabs 06/26/24 mg tablet ibuprofen 600 mg tablet 600 mg PO Q6H PRN pain #60 tabs 06/26/24 ondansetron HCl 4 mg tablet 4 mg PO Q8H PRN nausea and 06/26/24 vomiting #10 tabs Glucose meter #1 ea 07/02/24 blood sugar diagnostic (True #100 strips 07/08/24 Metrix Glucose Test Strip) escitalopram oxalate 20 mg tablet 10 mg (1/2 x 20 mg) PO DAILY #45 10/02/24 tabs rosuvastatin 10 mg tablet 10 mg PO DAILY #90 tabs 10/02/24 hydrocodone 5 mg-acetaminophen 325 1 tab PO Q6H PRN pain #15 tabs 12/16/24 mg tablet lisinopril 5 mg tablet 5 mg PO DAILY #14 tabs 12/16/24 Allergies Allergy/AdvReac Type Severity Reaction Status Date / Time No Known Drug Allergies Allergy Verified 12/16/24 10:07 Review of Systems Review of Systems Narrative: GENERAL: Negative chills, fatigue, malaise, fever, sweats. HEENT: Negative sinus pain, ear pain, sore throat RESPIRATORY: Negative dyspnea, cough CARDIOVASCULAR: Negative chest pain, palpitations GASTROINTESTINAL: Negative nausea, vomiting, abdominal pain : Negative dysuria, frequency, hematuria MUSCULOSKELETAL: Positive muscle or bony pain SKIN: Negative rash, skin lesions NEUROLOGIC: Negative weakness, numbness ROS Unobtainable: All systems reviewed & are unremarkable except as noted in HPI and below Patient History Medical History (Updated 12/16/24 @ 10:42 by Sivakumar Cain MD) DM type 2 with diabetic dyslipidemia Substance use disorder Alcohol use disorder Generalized anxiety disorder Elevated blood pressure reading without diagnosis of hypertension Tobacco use disorder Right rotator cuff tear Obesity (BMI 30.0-34.9) History of colonic polyps Depression, major, recurrent GERD without esophagitis Mixed hyperlipidemia Sleep apnea (~2019) Fractures (~2019) Chronic back pain Hearing loss Hemorrhoid Low testosterone History of adenomatous polyp of colon Chronic low back pain Hypogonadism Depression (~2009) Hyperlipidemia Diverticulitis Surgical History Hx of eye surgery Anesthesia History of appendectomy (~1985) History of colonoscopy Broken ankle (~2019) History of vasectomy Social History details: , one son and daughter, retired household members: spouse Smoking Status: Former smoker alcohol intake: former Smoking Status: Former smoker alcohol intake frequency: other Exam Narrative Exam Narrative: GENERAL: in no distress, not toxic not dyspneic HEAD: Normocephalic. EYES: Pupils equal round EXTREMITIES: No gross deformities. No drop off of the right shoulder. Strong instructor bridge on the right hand with strong radial pulse brisk cap refills light touch intact to fingers and thumb. NEURO: AOx4. SKIN: Warm and dry PSYCH: Not anxious, is cooperative Initial Vital Signs Initial Vital Signs: Vital Signs Temperature 98.2 F 12/16/24 09:52 Pulse Rate 83 12/16/24 09:52 Respiratory Rate 14 12/16/24 09:52 Blood Pressure 209/109 H 12/16/24 09:52 Pulse Oximetry 99 12/16/24 09:52 Oxygen Delivery Method Room Air 12/16/24 09:52 Course Orders Ordered: ED Orders 12/16/24 10:06 XR shoulder RT min 2V Stat Vital Signs Vital signs: Vital Signs - 8 hr 12/16/24 09:52 Temperature 98.2 F Pulse Rate 83 Respiratory Rate 14 Blood Pressure 209/109 H Pulse Oximetry 99 Oxygen Delivery Method Room Air MDM - Extremity (Nontraumatic) Imaging Data Extremity x-ray #1: Radiologist's Impression: [address] [address] XRay Report Signed Patient: Shreyas Granger MR#: [id number] : 1960 Acct:[id number] Age/Sex: 64 / M Date of Service: 12/16/24 Loc: ED Accession Number: [id number] Procedure: XR shoulder RT min 2V Ordering Provider: Sivakumar Cain MD PROCEDURE: XR SHOULDER RT MIN 2V INDICATIONS: Pain/injury TECHNIQUE: 3 views of the shoulder were acquired. COMPARISON: [facility], CR, XR SHOULDER 2+ VIEWS RIGHT, 07/10/2024, 10:59. [facility], , XR SHOULDER RT 1V, 06/26/2024, 12:52. FINDINGS: Bones: Postsurgical changes from right shoulder arthroplasty. Possible lucency around the humeral component. No fractures or dislocations. No suspicious bony lesions. Visualized ribs appear intact. Soft tissues: No suspicious soft tissue calcifications. IMPRESSION: Postsurgical changes from right shoulder arthroplasty. Possible lucency surrounding the humeral component, correlate with signs of loosening or infection. Dictated by: Jose Ryan M.D. on 12/16/2024 at 10:51 Approved by: Jose Ryan M.D. on 12/16/2024 at 10:54 [facility] Narrative Medical decision making narrative: Patient here for right shoulder pain/possible dislocation. Patient just got back from [place] about a week ago. Patient states last summer he had total right shoulder replacement by orthopedist here, Dr Hernandez, and had to have 2nd opinion down in [place] and had the ball joint replaced. He was informed that the original ball joint was too small, it was replaced with a larger 1, he went from medium to large, with the same manufacture. He stayed down the for rehab and did very well. The surgery in [place] was in August. He just got back a week ago, he states since then he has had 3 episodes where the joint has popped out he states he is able to place it back in himself. This occurred this morning, it popped out but he was able to pop it back in. He is wearing a shoulder harness brace that was provided to him last summer when he had the surgery here. Blood pressure noted. He states his blood pressure is always high. After history and exam, x-ray right shoulder, pain is controlled. [facility] Medical records reviewed: No recent visit here for this complaint Differential considered: Includes but not limited to shoulder strain sprain dislocation hardware malfunction Imaging studies independently reviewed: X-ray right shoulder no acute finding Consultations: I will provide orthopedic phone number for patient to call. For follow up., I did speak with Orthopedics 11:19 a.m., dr lizama, he would like patient to follow up with Dr. Mistry, his partner and they will review for referring patient to Dr. Hernandez again, in [place] 11:32 a.m.. I actually spoke with patient's surgeon dr hernandez, by cell phone, he isn't to come in now. He was able to look at the x-ray. Phone number [phone], he would like patient worked up outpatient with Dr. Diana, who will call Dr. Diana to update him will need CT-guided biopsy aspiration of the joint CBC CRP. No antibiotics at this time. This can be done outpatient basis. Patient can be discharged home now. Treatments: None indicated at this time Re-evaluations: 10:45 a.m.. Updated patient results. Pain is controlled at this time but he does inquire about pain medication when he has these flare-up. Will provide hydrocodone. Blood pressure noted. He is very anxious when he goes the offices he states in his blood pressure goes up but it does improve when he has not anxious. He does see Dr. Faustin, he does smoke. He does agree for starting lisinopril, review of patient's past multiple blood pressure measurements it is elevated. I did inform patient that he will see a local surgeon, Dr. Mistry here and you will refer patient back to Dr hernandez, who is now in [place] 11:35 a.m.. Spoke with patient again, I was able to speak with this surgeon dr hernandez, he is planning to do outpatient workup for him through Dr. Diana. Patient agrees with treatment plan. Blood pressure has improved. 171/91. No chest pain no shortness of breath no headache. Discussion: Appropriate for discharge home. Return precautions reviewed patient. Orthopedic referral provided. Pain is controlled. He desires discharge home. Patient agrees with prescription for lisinopril. Diagnosis: Recurrent shoulder pain Discharge Plan Departure Patient Disposition: Home Clinical Impression: Nontraumatic shoulder pain Qualifiers: Laterality: right Qualified Code(s): M25.511 - Pain in right shoulder Instructions: DI for Shoulder Pain Activity Restrictions/Additional Instructions: Please see your family doctor within a week for re-evaluation your blood pressure. Short course of blood pressure medication has been provided for you as well as pain medication. Your surgeon was contacted today and he is planning outpatient CT sampling to rule out infection in your shoulder as well as blood work. This will be completed through local orthopedist Dr Lizama, he has contacted this surgeon. Prescriptions: New hydrocodone-acetaminophen 5-325 mg tablet 1 tab PO Q6H PRN (Reason: pain) Qty: 15 0RF lisinopril 5 mg tablet 5 mg PO DAILY Qty: 14 0RF No Action sildenafil [Viagra] 50 mg tablet 50 mg PO DAILY PRN (Reason: sexual activity) Qty: 30 3RF Rx Instructions: administer 30 minutes to 4 hours before activity (DME) Glucose meter See Rx Instructions .Route .MEDSUPPLY Qty: 1 0RF Rx Instructions: Check blood glucose 1-2 times per day (DME) True Metrix Glucose Test Strip Strip See Rx Instructions .ROUTE .COMPLEX Qty: 100 12RF Dose Instruction: USE ONE STRIP TO TEST BLOOD GLUCOSE ONCE TO TWICE DAILY Rx Instructions: USE ONE STRIP TO TEST BLOOD GLUCOSE ONCE TO TWICE DAILY escitalopram oxalate 20 mg tablet 10 mg PO DAILY Qty: 45 3RF rosuvastatin 10 mg tablet 10 mg PO DAILY Qty: 90 3RF lidocaine 5 % adhesive patch,medicated 1 patch topical DAILY PRN (Reason: low back pain) oxycodone 5 mg Tablet 5 mg PO Q4H PRN (Reason: Pain) hydrocodone-acetaminophen 5-325 mg tablet 1 tab PO Q6H PRN (Reason: pain) Qty: 20 0RF ondansetron HCl 4 mg tablet 4 mg PO Q8H PRN (Reason: nausea and vomiting) Qty: 10 0RF ibuprofen 600 mg tablet 600 mg PO Q6H PRN (Reason: pain) Qty: 60 0RF multivitamin Tablet 1 tab PO DAILY Referrals: Sterling Faustin MD [Primary Care Provider] - Lopez Lizama MD [Physician] - Clinton Mistry MD [Physician] - Stand Alone Forms: Patient Portal/API/Survey
--- NOTE | 2024-12-16 10:32 | PC.NURSE ---
Pt states that he has had two shoulder surgeries on his right shoulder. States that his shoulder keeps popping out of the socket.
[2024-12-16 11:27] VITALS: BP 171/91
== END 2024-12-16 11:40 | disposition home or self-care (01) ==
PROVIDERS: Emergency Provider Emergency Medicine; PCP Internal Medicine; Referring Provider Emergency Medicine
DX: M25.511 Pain in right shoulder (principal)
CPT/HCPCS: 73030; 99281; 99283

== ENCOUNTER → 2025-04-07 08:36 | Outpatient (CLI) | payer MEDICARE, SELFPAY ==
[2025-04-07 10:20] LABS: Hemoglobin A1C% w Est Avg Glu 6.5 % (4.0-6.0)
[2025-04-07 10:30] LABS: BUN Creatinine Ratio 24.4 (6-22); Blood Urea Nitrogen 21 mg/dL (9-20); Calcium 10.1 mg/dL (8.4-10.2); Carbon Dioxide 26 mmol/L (22-32); Chloride 102 mmol/L (98-107); Cholesterol 217 mg/dL (140-199); Estimated Glomerular Filt Rate > 60 mL/min (>60); Glucose 139 mg/dL (70-99); HDL Cholesterol 50 mg/dL (40-60); HEMOLYSIS < 15 (0-50); Potassium 4.7 mmol/L (3.4-5.1); Sodium 141 mmol/L (137-145); Triglycerides 449 mg/dL (35-150)
[2025-04-07 10:36] LABS: Microalbumin Urine Random 0.8 mg/dL (0-1.6)
[2025-04-07 10:59] LABS: Prostate Specific Antigen 0.598 ng/mL (0.10-4.00)
== END ==
LOC: LAB 08:38
PROVIDERS: PCP Internal Medicine; Referring Provider Internal Medicine; Visit Provider Internal Medicine
DX: E11.69 Type 2 diabetes mellitus with other specified complication (principal); N40.1 Benign prostatic hyperplasia with lower urinary tract symptoms; N13.8 Other obstructive and reflux uropathy; E78.5 Hyperlipidemia, unspecified; E78.2 Mixed hyperlipidemia
CPT/HCPCS: 36415; 80048; 80061; 82043; 82570; 83036; 84153

== ENCOUNTER → 2025-10-08 07:09 | Outpatient (CLI) | payer MEDICARE, SELFPAY ==
[2025-10-08 08:36] LABS: Blood Urea Nitrogen 18 mg/dL (9-20); Calcium 9.5 mg/dL (8.4-10.2); Carbon Dioxide 28 mmol/L (22-32); Chloride 97 mmol/L (98-107); Cholesterol 210 mg/dL (140-199); Estimated Glomerular Filt Rate > 60 mL/min (>60); Glucose 121 mg/dL (70-99); HDL Cholesterol 42 mg/dL (40-60); HEMOLYSIS < 15 (0-50); Potassium 3.9 mmol/L (3.4-5.1); Sodium 137 mmol/L (137-145)
[2025-10-08 09:03] LABS: Triglycerides 707 mg/dL (35-150)
[2025-10-08 11:27] LABS: Hemoglobin A1C% w Est Avg Glu 6.3 % (4.0-6.0)
== END ==
PROVIDERS: PCP Internal Medicine; Referring Provider Internal Medicine; Visit Provider Internal Medicine
DX: E11.69 Type 2 diabetes mellitus with other specified complication (principal); I10 Essential (primary) hypertension; E78.2 Mixed hyperlipidemia; E78.5 Hyperlipidemia, unspecified
CPT/HCPCS: 36415; 80048; 80061; 83036; 84450

== ENCOUNTER → 2025-10-27 07:57 | Outpatient (CLI) | payer MEDICARE, SELFPAY | LOC: ECHO 07:58 | PROVIDERS: PCP Internal Medicine; Referring Provider Internal Medicine; Visit Provider Internal Medicine | DX: I25.10 Atherosclerotic heart disease of native coronary artery without angina pectoris (principal) | CPT/HCPCS: 93306 ==